=== PATIENT | female | born 1945 | race Caucasian/White ===

== ENCOUNTER 2022-06-20 14:30 | Inpatient (IN) | payer MEDICARE, OTHER ==
[2022-06-20 16:27] LABS: #Monocytes 0.1 10x3/uL (0.0-1.1); #Neutrophils 6.9 10x3/uL (1.5-8.4); %Basophils 0.3 % (0.0-2.0); %Eosinophils 0.1 % (0.0-6.0); %Lymphocytes 5.2 % (18.0-47.0); %Monocytes 1.7 % (0.0-10.0); %Neutrophils 91.1 % (40.0-75.0); Hemoglobin 9.4 g/dL (12.0-15.5); Mean Corpuscular HGB CONC 32.2 g/dL (32.0-36.0); Mean Corpuscular Hemoglobin 34.9 pg (27.0-33.0); Mean Corpuscular Volume 108.6 fl (81.6-98.3); Mean Platelet Volume 10.5 fl (7.4-10.4); Platelet Count 248 10x3/uL (150-450); RBC Distribution Width 16.1 % (11.5-14.5); Red Blood Cell (RBC) Count 2.69 10x6/uL (3.90-5.03); White Blood Cell (WBC) Count 7.6 10x3/uL (3.5-10.5)
[2022-06-20 16:36] LABS: ALT (SGPT) 20 U/L (8-55); AST (SGOT) 15 U/L (5-34); Albumin 2.9 g/dL (3.4-4.8); Alkaline Phosphatase 60 U/L (40-110); Anion Gap 16 mmol/L (10-20); BUN (Urea Nitrogen) 78 mg/dL (9.8-20.1); Bilirubin, Total 0.4 mg/dL (0.2-1.2); Calc. Creatinine Clearance 0 mL/min (70-130); Calcium 8.8 mg/dL (7.8-10.44); Carbon Dioxide 25 mmol/L (23-31); Chloride 100 mmol/L (98-107); Estimated GFR 17; Globulin 2.8 g/dL (2.4-3.5); Glucose 185 mg/dL (83-110); Potassium 4.7 mmol/L (3.5-5.1); Protein, Total 5.7 g/dL (5.8-8.1); Sodium 136 mmol/L (136-145)
[2022-06-20] MEDS ORDERED: Ondansetron ODT 4 MG TAB ONE (16:40)
[2022-06-20] MEDS ORDERED: HYDROcodone/Acetaminophen 5/325 mg Tablet ONE (16:41)
[2022-06-20 16:54] LABS: Platelet Morphology Comment Appears Adequate
[2022-06-20 16:57] LABS: Anisocytosis SLIGHT = 6-15 cells (100X) (0-5/hpf); Elliptocytes SLIGHT = 2-5 cells (100X) (0-1/hpf); Hypochromia SLIGHT = 6-15 cells (100X) (0-5/hpf); Macrocytosis SLIGHT = 6-15 cells (100X) (0-5/hpf); Microcytosis SLIGHT = 6-15 cells (100X) (0-5/hpf); Polychromasia SLIGHT = 2-3 cells (100X) (0-2/hpf)
[2022-06-20] MEDS ORDERED: Cefepime 2 GM VIAL ONE (18:01)
[2022-06-20] MEDS ORDERED: Acetaminophen 650 MG Suppository PR PRN (18:23)
[2022-06-20] MEDS ORDERED: Ondansetron PF 4 MG/2 ML Vial IVP PRN (18:23)
[2022-06-20] MEDS ORDERED: Vancomycin 1 GM in Premix Bag 1 BAG IVPB SCH (18:30)
[2022-06-20] MEDS ORDERED: Vancomycin 1 GM VIAL ONE (18:53)
[2022-06-20 18:57] LABS: Lactic Acid 1.2 mmol/L (0.5-2.2)
[2022-06-20 21:32] VITALS: BMI 22.8
[2022-06-20] MEDS: metroNIDAZOLE 500 MG in Premix Bag 1 BAG IVPB SCH (22:00)
[2022-06-21 00:31] LABS: SARS-CoV-2 NAA Rapid Test Not Detected (NotDetected)
[2022-06-21 04:25] LABS: Anion Gap 12 mmol/L (10-20); BUN (Urea Nitrogen) 71 mg/dL (9.8-20.1); Calc. Creatinine Clearance 17 mL/min (70-130); Calcium 8.2 mg/dL (7.8-10.44); Carbon Dioxide 25 mmol/L (23-31); Chloride 105 mmol/L (98-107); Estimated GFR 20; Glucose 94 mg/dL (83-110); Potassium 3.9 mmol/L (3.5-5.1); Sodium 138 mmol/L (136-145)
[2022-06-21 04:30] LABS: #Eosinphils 0.1 10x3/uL (0.0-0.5); #Monocytes 0.4 10x3/uL (0.0-1.1); #Neutrophils 5.4 10x3/uL (1.5-8.4); %Basophils 0.1 % (0.0-2.0); %Eosinophils 0.9 % (0.0-6.0); %Lymphocytes 13.1 % (18.0-47.0); %Neutrophils 78.9 % (40.0-75.0); Hemoglobin 8.6 g/dL (12.0-15.5); Mean Corpuscular HGB CONC 31.7 g/dL (32.0-36.0); Mean Corpuscular Hemoglobin 34.1 pg (27.0-33.0); Mean Corpuscular Volume 107.5 fl (81.6-98.3); Mean Platelet Volume 10.3 fl (7.4-10.4); Platelet Count 229 10x3/uL (150-450); RBC Distribution Width 16.1 % (11.5-14.5); Red Blood Cell (RBC) Count 2.52 10x6/uL (3.90-5.03); White Blood Cell (WBC) Count 6.9 10x3/uL (3.5-10.5)
[2022-06-21] MEDS: metroNIDAZOLE 500 MG in Premix Bag 1 BAG IVPB SCH ×4 (04:31→21:53)
[2022-06-21] MEDS ORDERED: Vancomycin DOSE BY LEVEL IVPB PRN (05:59)
[2022-06-21] MEDS ORDERED: Magnevist 469MG/ML 20 ML VIAL ONE (09:12)
[2022-06-21] MEDS: Acetaminophen 325 MG TAB PO PRN (10:23)
[2022-06-21] MEDS: HYDROcodone/Acetaminophen 7.5/325 mg Tablet PO PRN ×2 (16:17→21:49)
[2022-06-21] MEDS: Ondansetron ODT 4 MG TAB PO PRN ×2 (16:18→21:52)
[2022-06-21] MEDS: Cefepime 2 GM in Sodium Chloride 0.9% 100 ML IVPB SCH (17:58)
[2022-06-21 19:12] LABS: Vancomycin, Random 11.9 ug/mL (See Comment)
[2022-06-21] MEDS ORDERED: Vancomycin HCl 500 MG in Sodium Chloride 0.9% 100 ML IVPB SCH (20:00)
[2022-06-22] MEDS: HYDROcodone/Acetaminophen 7.5/325 mg Tablet PO PRN ×3 (02:14→15:32)
[2022-06-22] MEDS: metroNIDAZOLE 500 MG in Premix Bag 1 BAG IVPB SCH ×4 (03:56→21:14)
[2022-06-22 05:33] LABS: #Eosinphils 0.1 10x3/uL (0.0-0.5); #Monocytes 0.4 10x3/uL (0.0-1.1); #Neutrophils 4.4 10x3/uL (1.5-8.4); %Basophils 0.5 % (0.0-2.0); %Eosinophils 1.5 % (0.0-6.0); %Lymphocytes 16.4 % (18.0-47.0); %Neutrophils 74.2 % (40.0-75.0); Hemoglobin 8.5 g/dL (12.0-15.5); Mean Corpuscular Hemoglobin 33.9 pg (27.0-33.0); Mean Corpuscular Volume 109.2 fl (81.6-98.3); Mean Platelet Volume 10.1 fl (7.4-10.4); Platelet Count 204 10x3/uL (150-450); RBC Distribution Width 16.6 % (11.5-14.5); Red Blood Cell (RBC) Count 2.51 10x6/uL (3.90-5.03); White Blood Cell (WBC) Count 5.9 10x3/uL (3.5-10.5)
[2022-06-22 05:39] LABS: Anion Gap 11 mmol/L (10-20); BUN (Urea Nitrogen) 60 mg/dL (9.8-20.1); Calc. Creatinine Clearance 18 mL/min (70-130); Calcium 7.9 mg/dL (7.8-10.44); Carbon Dioxide 25 mmol/L (23-31); Chloride 108 mmol/L (98-107); Estimated GFR 21; Glucose 84 mg/dL (83-110); Sodium 140 mmol/L (136-145)
[2022-06-22] MEDS: Ondansetron ODT 4 MG TAB PO PRN ×2 (09:45→15:32)
[2022-06-22] MEDS: Cefepime 2 GM in Sodium Chloride 0.9% 100 ML IVPB SCH (17:17)
[2022-06-22] MEDS: Acetaminophen 325 MG TAB PO PRN (18:16)
[2022-06-22 20:43] LABS: Vancomycin, Random 13.3 ug/mL (See Comment)
[2022-06-22] MEDS ORDERED: Non-Formulary Medication 1 EACH (Apremilast [Otezla] 30 MG Tablet) PO SCH (21:00)
[2022-06-22] MEDS: Cyclobenzaprine 10 MG TAB PO SCH (21:13)
[2022-06-22] MEDS: Gabapentin 300 MG CAP PO SCH (21:13)
[2022-06-22] MEDS ORDERED: Vancomycin HCl 500 MG in Sodium Chloride 0.9% 100 ML IVPB SCH (23:59)
[2022-06-23 04:30] LABS: #Eosinphils 0.1 10x3/uL (0.0-0.5); #Monocytes 0.4 10x3/uL (0.0-1.1); #Neutrophils 4.9 10x3/uL (1.5-8.4); %Basophils 0.5 % (0.0-2.0); %Eosinophils 2.1 % (0.0-6.0); %Lymphocytes 13.6 % (18.0-47.0); %Monocytes 5.9 % (0.0-10.0); %Neutrophils 76.9 % (40.0-75.0); Hemoglobin 8.5 g/dL (12.0-15.5); Mean Corpuscular HGB CONC 30.9 g/dL (32.0-36.0); Mean Corpuscular Hemoglobin 34.3 pg (27.0-33.0); Mean Corpuscular Volume 110.9 fl (81.6-98.3); Mean Platelet Volume 10.2 fl (7.4-10.4); Platelet Count 201 10x3/uL (150-450); RBC Distribution Width 16.2 % (11.5-14.5); Red Blood Cell (RBC) Count 2.48 10x6/uL (3.90-5.03); White Blood Cell (WBC) Count 6.3 10x3/uL (3.5-10.5)
[2022-06-23 04:36] LABS: Anion Gap 12 mmol/L (10-20); BUN (Urea Nitrogen) 42 mg/dL (9.8-20.1); Calc. Creatinine Clearance 22 mL/min (70-130); Carbon Dioxide 23 mmol/L (23-31); Chloride 111 mmol/L (98-107); Estimated GFR 28; Glucose 84 mg/dL (83-110); Potassium 4.1 mmol/L (3.5-5.1); Sodium 142 mmol/L (136-145)
[2022-06-23] MEDS: metroNIDAZOLE 500 MG in Premix Bag 1 BAG IVPB SCH ×4 (05:41→21:56)
[2022-06-23] MEDS: Rivaroxaban 15 MG TAB PO SCH (08:44)
[2022-06-23] MEDS: Cholecalciferol 1,000 UNITS (25 MCG) TAB PO SCH (08:45)
[2022-06-23] MEDS: Amiodarone 200 MG TAB PO SCH (08:45)
[2022-06-23] MEDS: Calcitriol 0.25 MCG CAP PO SCH (08:45)
[2022-06-23] MEDS: Folic Acid 1 MG TAB PO SCH (08:45)
[2022-06-23] MEDS: Ascorbic Acid 500 mg Chewable Tablet PO SCH (08:45)
[2022-06-23] MEDS: Metoprolol Tartrate 25 MG TAB PO SCH (08:45)
[2022-06-23] MEDS: Zinc Sulfate 220 MG CAP PO SCH (08:45)
[2022-06-23] MEDS: Multivit, Therapeutic 1 TAB PO SCH (08:45)
[2022-06-23] MEDS: Furosemide 40 MG TAB PO SCH (08:45)
[2022-06-23] MEDS: Allopurinol 100 MG TAB PO SCH (08:45)
[2022-06-23] MEDS: Cyanocobalamin (Vitamin B-12) 1,000 MCG TAB PO SCH (08:45)
[2022-06-23] MEDS ORDERED: Non-Formulary Medication 1 EACH (Biotin [Biotin] 10,000 MCG Capsule) PO SCH (09:00)
[2022-06-23] MEDS ORDERED: Levothyroxine Sodium 75 MCG TAB PO SCH (09:00)
[2022-06-23] MEDS: Cefepime 2 GM in Sodium Chloride 0.9% 100 ML IVPB SCH (17:46)
[2022-06-23] MEDS: Gabapentin 300 MG CAP PO SCH (20:34)
[2022-06-23] MEDS: Cyclobenzaprine 10 MG TAB PO SCH (20:34)
[2022-06-24 05:20] LABS: Anion Gap 11 mmol/L (10-20); BUN (Urea Nitrogen) 35 mg/dL (9.8-20.1); Calc. Creatinine Clearance 24 mL/min (70-130); Calcium 8.1 mg/dL (7.8-10.44); Carbon Dioxide 26 mmol/L (23-31); Chloride 108 mmol/L (98-107); Estimated GFR 30; Glucose 86 mg/dL (83-110); Potassium 3.5 mmol/L (3.5-5.1); Sodium 141 mmol/L (136-145)
[2022-06-24] MEDS ORDERED: Vancomycin HCl 500 MG in Sodium Chloride 0.9% 100 ML IVPB SCH (06:30)
[2022-06-24] MEDS: metroNIDAZOLE 500 MG in Premix Bag 1 BAG IVPB SCH ×4 (07:16→23:13)
[2022-06-24] MEDS: Rivaroxaban 15 MG TAB PO SCH (09:04)
[2022-06-24] MEDS: Ascorbic Acid 500 mg Chewable Tablet PO SCH (09:04)
[2022-06-24] MEDS: Cholecalciferol 1,000 UNITS (25 MCG) TAB PO SCH (09:04)
[2022-06-24] MEDS: Multivit, Therapeutic 1 TAB PO SCH (09:04)
[2022-06-24] MEDS: Amiodarone 200 MG TAB PO SCH (09:04)
[2022-06-24] MEDS: Calcitriol 0.25 MCG CAP PO SCH (09:05)
[2022-06-24] MEDS: Cyanocobalamin (Vitamin B-12) 1,000 MCG TAB PO SCH (09:05)
[2022-06-24] MEDS: Folic Acid 1 MG TAB PO SCH (09:05)
[2022-06-24] MEDS: Furosemide 40 MG TAB PO SCH (09:05)
[2022-06-24] MEDS: Metoprolol Tartrate 25 MG TAB PO SCH (09:05)
[2022-06-24] MEDS: Zinc Sulfate 220 MG CAP PO SCH (09:15)
[2022-06-24] MEDS: Allopurinol 100 MG TAB PO SCH (09:15)
[2022-06-24] MEDS: Cefepime 2 GM in Sodium Chloride 0.9% 100 ML IVPB SCH (18:00)
[2022-06-24] MEDS: Gabapentin 300 MG CAP PO SCH (20:30)
[2022-06-24] MEDS: Cyclobenzaprine 10 MG TAB PO SCH (20:30)
[2022-06-25] MEDS: metroNIDAZOLE 500 MG in Premix Bag 1 BAG IVPB SCH ×2 (04:15→11:53)
[2022-06-25 05:04] LABS: Anion Gap 14 mmol/L (10-20); BUN (Urea Nitrogen) 32 mg/dL (9.8-20.1); Calc. Creatinine Clearance 22 mL/min (70-130); Calcium 8.1 mg/dL (7.8-10.44); Carbon Dioxide 23 mmol/L (23-31); Chloride 107 mmol/L (98-107); Estimated GFR 28; Glucose 86 mg/dL (83-110); Potassium 3.5 mmol/L (3.5-5.1); Sodium 140 mmol/L (136-145)
[2022-06-25 05:55] LABS: Vancomycin, Random 17.6 ug/mL (See Comment)
[2022-06-25] MEDS: Cholecalciferol 1,000 UNITS (25 MCG) TAB PO SCH (08:31)
[2022-06-25] MEDS: Zinc Sulfate 220 MG CAP PO SCH (08:31)
[2022-06-25] MEDS: Metoprolol Tartrate 25 MG TAB PO SCH (08:32)
[2022-06-25] MEDS: Multivit, Therapeutic 1 TAB PO SCH (08:32)
[2022-06-25] MEDS: Amiodarone 200 MG TAB PO SCH (08:32)
[2022-06-25] MEDS: Calcitriol 0.25 MCG CAP PO SCH (08:32)
[2022-06-25] MEDS: Ascorbic Acid 500 mg Chewable Tablet PO SCH (08:32)
[2022-06-25] MEDS: Cyanocobalamin (Vitamin B-12) 1,000 MCG TAB PO SCH (08:32)
[2022-06-25] MEDS: Rivaroxaban 15 MG TAB PO SCH (08:32)
[2022-06-25] MEDS: Folic Acid 1 MG TAB PO SCH (08:32)
[2022-06-25] MEDS: Furosemide 40 MG TAB PO SCH (08:32)
[2022-06-25] MEDS: Allopurinol 100 MG TAB PO SCH (08:32)
[2022-06-25] MEDS: Cefepime 2 GM in Sodium Chloride 0.9% 100 ML IVPB SCH (18:39)
[2022-06-25] MEDS: Cyclobenzaprine 10 MG TAB PO SCH (21:20)
[2022-06-25] MEDS: Gabapentin 300 MG CAP PO SCH (21:20)
[2022-06-26 07:01] LABS: Vancomycin, Random 13.6 ug/mL (See Comment)
[2022-06-26] MEDS ORDERED: Vancomycin HCl 500 MG in Sodium Chloride 0.9% 100 ML IVPB SCH (08:00)
[2022-06-26] MEDS: Metoprolol Tartrate 25 MG TAB PO SCH (10:00)
[2022-06-26] MEDS: Amiodarone 200 MG TAB PO SCH (10:01)
[2022-06-26] MEDS: Zinc Sulfate 220 MG CAP PO SCH (10:01)
[2022-06-26] MEDS: Cholecalciferol 1,000 UNITS (25 MCG) TAB PO SCH (10:01)
[2022-06-26] MEDS: Rivaroxaban 15 MG TAB PO SCH (10:02)
[2022-06-26] MEDS: Multivit, Therapeutic 1 TAB PO SCH (10:02)
[2022-06-26] MEDS: Folic Acid 1 MG TAB PO SCH (10:03)
[2022-06-26] MEDS: Furosemide 40 MG TAB PO SCH (10:03)
[2022-06-26] MEDS: Calcitriol 0.25 MCG CAP PO SCH (10:03)
[2022-06-26] MEDS: Allopurinol 100 MG TAB PO SCH (10:03)
[2022-06-26] MEDS: Cyanocobalamin (Vitamin B-12) 1,000 MCG TAB PO SCH (10:03)
[2022-06-26] MEDS: Ascorbic Acid 500 mg Chewable Tablet PO SCH (10:03)
[2022-06-26 13:20] VITALS: BP 98/53; TEMP 98
== END 2022-06-26 14:20 | disposition home health service (06) | DRG 603 ==
LOC: CSHERS 14:30 → CSHTELE 21:10 → INTOOBSV 21:10 → OBSVTOIN 06-21 10:53
PROVIDERS: ADMIT Family Medicine; ATTEND Internal Medicine
DX: L03.116 Cellulitis of left lower limb (principal); N18.4 Chronic kidney disease, stage 4 (severe); I48.11 Longstanding persistent atrial fibrillation; N17.9 Acute kidney failure, unspecified; Z20.822 Contact with and (suspected) exposure to COVID-19; Z79.01 Long term (current) use of anticoagulants; Z98.84 Bariatric surgery status; Z90.49 Acquired absence of other specified parts of digestive tract; Z90.710 Acquired absence of both cervix and uterus; M60.9 Myositis, unspecified; E03.9 Hypothyroidism, unspecified; Z79.890 Hormone replacement therapy; I12.9 Hypertensive chronic kidney disease with stage 1 through stage 4 chronic kidney disease, or unspecified chronic kidney disease; Z88.1 Allergy status to other antibiotic agents; Z88.6 Allergy status to analgesic agent
CPT/HCPCS: 36415; 80048; 80053; 80202; 83605; 85025; 87040; 94760; 96365; 96375; 96376; 97139; A9579; G0378; J0692; J2405; J3370; J3490; Q0162; U0002

== ENCOUNTER 2022-06-30 09:57 | Outpatient (CLI) | payer MEDICARE, OTHER | END 2022-06-30 09:58 | disposition home or self-care (01) | LOC: CSHWCC 09:57 | PROVIDERS: ATTEND Nurse Practitioner Family | DX: R60.0 Localized edema (principal) | CPT/HCPCS: 29581; 97139; G0463; 99204 ==

== ENCOUNTER 2022-07-14 10:54 | Outpatient (CLI) | payer MEDICARE, OTHER | END 2022-07-14 10:55 | disposition home or self-care (01) | LOC: CSHWCC 10:54 | PROVIDERS: ATTEND Nurse Practitioner Family | DX: R60.1 Generalized edema (principal); S81.802D Unspecified open wound, left lower leg, subsequent encounter | CPT/HCPCS: 29581; 97139; 97607; G0463; 99212 ==

== ENCOUNTER 2022-07-21 08:04 | Outpatient (CLI) | payer MEDICARE, OTHER | END 2022-07-21 08:05 | disposition home or self-care (01) | LOC: CSHWCC 08:04 | PROVIDERS: ATTEND Nurse Practitioner Family | DX: S81.802D Unspecified open wound, left lower leg, subsequent encounter (principal); R60.0 Localized edema ==

== ENCOUNTER 2022-07-28 10:40 | Outpatient (CLI) | payer MEDICARE, OTHER | END 2022-07-28 10:41 | disposition home or self-care (01) | LOC: CSHWCC 10:40 | PROVIDERS: ATTEND Nurse Practitioner Family | DX: S81.802D Unspecified open wound, left lower leg, subsequent encounter (principal); R60.0 Localized edema | CPT/HCPCS: 29581 ==

== ENCOUNTER 2022-08-11 10:35 | Outpatient (CLI) | payer MEDICARE, OTHER | END 2022-08-11 10:36 | disposition home or self-care (01) | LOC: CSHWCC 10:35 | PROVIDERS: ATTEND Nurse Practitioner Family | DX: S81.802D Unspecified open wound, left lower leg, subsequent encounter (principal); R60.0 Localized edema | CPT/HCPCS: 99213; G0463 ==

== ENCOUNTER 2022-12-19 15:09 | Outpatient (CLI) | payer MEDICARE, OTHER | END 2022-12-19 15:10 | disposition home or self-care (01) | LOC: CSHWCC 15:09 | PROVIDERS: ATTEND Nurse Practitioner Family | DX: L89.620 Pressure ulcer of left heel, unstageable (principal); S91.102D Unspecified open wound of left great toe without damage to nail, subsequent encounter; R60.0 Localized edema | CPT/HCPCS: 97139; G0463; 99213 ==

== ENCOUNTER 2022-12-26 09:22 | Outpatient (CLI) | payer MEDICARE, OTHER | END 2022-12-26 09:23 | disposition home or self-care (01) | LOC: CSHWCC 09:22 | PROVIDERS: ATTEND Nurse Practitioner Family | DX: R60.0 Localized edema (principal); L89.620 Pressure ulcer of left heel, unstageable | CPT/HCPCS: 97597 ==

== ENCOUNTER 2023-01-09 13:06 | Outpatient (CLI) | payer MEDICARE, OTHER | END 2023-01-09 13:07 | disposition home or self-care (01) | LOC: CSHWCC 13:06 | PROVIDERS: ATTEND Nurse Practitioner Family | DX: L89.620 Pressure ulcer of left heel, unstageable (principal); R60.0 Localized edema | CPT/HCPCS: 97139; 97605; G0463; 99213 ==

== ENCOUNTER 2023-01-23 11:07 | Outpatient (CLI) | payer MEDICARE, OTHER | END 2023-01-23 11:08 | disposition home or self-care (01) | LOC: CSHWCC 11:07 | PROVIDERS: ATTEND Nurse Practitioner Family | DX: R60.0 Localized edema (principal); L89.620 Pressure ulcer of left heel, unstageable | CPT/HCPCS: 97597; 97607 ==

== ENCOUNTER 2023-02-01 13:33 | Outpatient (CLI) | payer MEDICARE, OTHER | END 2023-02-01 13:34 | disposition home or self-care (01) | LOC: CSHWCC 13:33 | PROVIDERS: ATTEND Nurse Practitioner Family | DX: L89.620 Pressure ulcer of left heel, unstageable (principal); R60.0 Localized edema | CPT/HCPCS: 11042 ==

== ENCOUNTER 2024-05-30 09:28 | Inpatient (IN) | payer MEDICARE, OTHER ==
[2024-05-30] MEDS ORDERED: Ondansetron PF 4 MG/2 ML Vial ONE (09:48)
[2024-05-30 10:30] LABS: #Basophils 0.03 10x3/uL (0.0-0.2); #Eosinophils 0.04 10x3/uL (0.0-0.5); #Monocytes 0.46 10x3/uL (0.0-1.1); #Neutrophils 8.23 10x3/uL (1.5-8.4); %Basophils 0.3 % (0.0-2.0); %Eosinophils 0.4 % (0.0-6.0); %Lymphocytes 3.7 % (18.0-47.0); %Neutrophils 90.1 % (40.0-75.0); Hematocrit 33.7 % (34.9-44.5); Hemoglobin 9.9 g/dL (12.0-15.5); Mean Corpuscular HGB CONC 29.4 g/dL (32.0-36.0); Mean Corpuscular Hemoglobin 30.2 pg (27.0-33.0); Mean Corpuscular Volume 102.7 fL (81.6-98.3); Mean Platelet Volume 10.9 fL (7.4-10.4); Platelet Count 146 10x3/uL (150-450); RBC Distribution Width 16.1 % (11.5-14.5); Red Blood Cell (RBC) Count 3.28 10x6/uL (3.90-5.03); White Blood Cell (WBC) Count 9.2 10x3/uL (3.5-10.5)
[2024-05-30 10:42] LABS: ALT (SGPT) 16 U/L (8-55); AST (SGOT) 13 U/L (5-34); Alkaline Phosphatase 80 U/L (40-110); Anion Gap 18 mmol/L (10-20); BUN (Urea Nitrogen) 74 mg/dL (9.8-20.1); Bilirubin, Total 0.3 mg/dL (0.2-1.2); Calc. Creatinine Clearance 0 mL/min (70-130); Calcium 8.5 mg/dL (7.8-10.44); Carbon Dioxide 12 mmol/L (23-31); Chloride 116 mmol/L (98-107); Estimated GFR 12; Globulin 3.2 g/dL (2.4-3.5); Glucose 69 mg/dL (83-110); Lipase 12 U/L (8-78); Protein, Total 6.2 g/dL (5.8-8.1); Sodium 140 mmol/L (136-145)
[2024-05-30 10:48] LABS: Troponin I 0.016 ng/mL (< 0.028)
[2024-05-30 11:04] LABS: Critical Call Chemistry NUR.JF4 @1103; Potassium 6.2 mmol/L (3.5-5.1)
[2024-05-30] MEDS ORDERED: Calcium Chloride 1 GM/10 ML Abboject SYRINGE ONE (11:12)
[2024-05-30] MEDS ORDERED: Dextrose 50% Abboject 50 ML SYRINGE ONE (11:13)
[2024-05-30] MEDS ORDERED: Sodium Bicarb 50 MEQ/50 ML Abboject 8.4% SYRINGE ONE (11:13)
[2024-05-30 12:50] LABS: Bilirubin Neg (Negative); Blood, Urine Negative (Negative); Clarity Cloudy (Clear); Glucose, Urine (Dipstick) Normal (Negative); Ketone, Urine 5 mg/dL (Negative); Leukocyte Negative (Negative); Nitrite Negative (Negative); Protein, Urine (Dipstick) 30 mg/dl (Neg-Trace); Specific Gravity, Urine 1.015 (1.005-1.030); Urobilinogen Normal mg/dL (Less than 2)
[2024-05-30 12:58] LABS: Bacteria/HPF Rare-Few HPF (None Seen); CAUTI Indications for Culture Pelvic or flank pain; RBC/HPF None Seen HPF (0-3); Squamous Epithelial 0-3 HPF (0-3); WBC/HPF 0-3 HPF (0-3)
[2024-05-30 13:00] LABS: Urine Culture Reflex No No
[2024-05-30] MEDS: Sodium Bicarbonate 150 MEQ in Dextrose 5% in Water 1,000 ML IV SCH (13:29)
[2024-05-30] MEDS ORDERED: Acetaminophen 325 MG TAB PO PRN (14:18)
[2024-05-30] MEDS ORDERED: Calcium Carbonate 500 MG ChewTAB PO PRN (14:18)
[2024-05-30] MEDS ORDERED: Ondansetron PF 4 MG/2 ML Vial IVP PRN (15:27)
[2024-05-30 16:06] LABS: Anion Gap 14 mmol/L (10-20); BUN (Urea Nitrogen) 65 mg/dL (9.8-20.1); Calc. Creatinine Clearance 0 mL/min (70-130); Calcium 8.5 mg/dL (7.8-10.44); Carbon Dioxide 15 mmol/L (23-31); Chloride 120 mmol/L (98-107); Estimated GFR 14; Glucose 112 mg/dL (83-110); Potassium 5.8 mmol/L (3.5-5.1); Sodium 143 mmol/L (136-145)
[2024-05-30 17:47] VITALS: BMI 22.2
[2024-05-30] MEDS: Cyanocobalamin (Vitamin B-12) 1,000 MCG TAB PO SCH (21:25)
[2024-05-30] MEDS: Folic Acid 1 MG TAB PO SCH (21:25)
[2024-05-30] MEDS: Pantoprazole 40 MG VIAL IVP SCH (21:25)
[2024-05-30] MEDS: Thiamine 100 MG TAB PO SCH (21:25)
[2024-05-31 04:20] LABS: #Basophils 0.03 10x3/uL (0.0-0.2); #Eosinophils 0.27 10x3/uL (0.0-0.5); #Neutrophils 4.28 10x3/uL (1.5-8.4); %Basophils 0.5 % (0.0-2.0); %Eosinophils 4.5 % (0.0-6.0); %Lymphocytes 13.6 % (18.0-47.0); %Neutrophils 70.9 % (40.0-75.0); Hematocrit 29.2 % (34.9-44.5); Hemoglobin 8.9 g/dL (12.0-15.5); Mean Corpuscular HGB CONC 30.5 g/dL (32.0-36.0); Mean Corpuscular Hemoglobin 30.5 pg (27.0-33.0); Mean Platelet Volume 11.7 fL (7.4-10.4); Platelet Count 137 10x3/uL (150-450); RBC Distribution Width 16.2 % (11.5-14.5); Red Blood Cell (RBC) Count 2.92 10x6/uL (3.90-5.03)
[2024-05-31 04:36] LABS: ALT (SGPT) 13 U/L (8-55); AST (SGOT) 10 U/L (5-34); Albumin 2.4 g/dL (3.4-4.8); Alkaline Phosphatase 63 U/L (40-110); Anion Gap 14 mmol/L (10-20); BUN (Urea Nitrogen) 59 mg/dL (9.8-20.1); Bilirubin, Total 0.4 mg/dL (0.2-1.2); Calc. Creatinine Clearance 14 mL/min (70-130); Calcium 8.4 mg/dL (7.8-10.44); Carbon Dioxide 19 mmol/L (23-31); Chloride 114 mmol/L (98-107); Estimated GFR 16; Globulin 2.8 g/dL (2.4-3.5); Glucose 98 mg/dL (83-110); Potassium 5.2 mmol/L (3.5-5.1); Protein, Total 5.2 g/dL (5.8-8.1); Sodium 142 mmol/L (136-145)
[2024-05-31] MEDS: Levothyroxine Sodium 75 MCG TAB PO SCH (06:05)
[2024-05-31] MEDS: Calcitriol 0.25 MCG CAP PO SCH (09:53)
[2024-05-31] MEDS: Ondansetron ODT 4 MG TAB PO PRN (09:53)
[2024-05-31] MEDS: Sodium Bicarbonate Tab 325 MG TAB PO SCH (15:53)
[2024-05-31 23:48] VITALS: BMI 22.2
[2024-06-01 08:49] LABS: #Basophils 0.05 10x3/uL (0.0-0.2); #Eosinophils 0.36 10x3/uL (0.0-0.5); #Monocytes 0.77 10x3/uL (0.0-1.1); %Basophils 0.8 % (0.0-2.0); %Eosinophils 5.6 % (0.0-6.0); %Lymphocytes 20.6 % (18.0-47.0); %Monocytes 11.9 % (0.0-10.0); %Neutrophils 60.5 % (40.0-75.0); Hematocrit 33.1 % (34.9-44.5); Hemoglobin 9.9 g/dL (12.0-15.5); Mean Corpuscular HGB CONC 29.9 g/dL (32.0-36.0); Mean Corpuscular Hemoglobin 30.4 pg (27.0-33.0); Mean Corpuscular Volume 101.5 fL (81.6-98.3); Mean Platelet Volume 11.3 fL (7.4-10.4); Platelet Count 161 10x3/uL (150-450); RBC Distribution Width 16.1 % (11.5-14.5); Red Blood Cell (RBC) Count 3.26 10x6/uL (3.90-5.03); White Blood Cell (WBC) Count 6.5 10x3/uL (3.5-10.5)
[2024-06-01] MEDS ORDERED: Heparin 5,000 UNITS/ML VIAL SC SCH (09:00)
[2024-06-01 09:02] LABS: Anion Gap 15 mmol/L (10-20); BUN (Urea Nitrogen) 50 mg/dL (9.8-20.1); Calc. Creatinine Clearance 15 mL/min (70-130); Calcium 8.2 mg/dL (7.8-10.44); Carbon Dioxide 21 mmol/L (23-31); Chloride 111 mmol/L (98-107); Estimated GFR 17; Glucose 73 mg/dL (83-110); Potassium 5.2 mmol/L (3.5-5.1); Sodium 142 mmol/L (136-145)
[2024-06-01] MEDS: Pantoprazole 40 MG DR.TAB PO SCH (10:32)
[2024-06-01] MEDS ORDERED: Polyethylene Glycol 3350 17 GM Packet PO PRN (12:05)
[2024-06-01] MEDS: Heparin 5,000 UNITS/ML VIAL SC SCH (21:20)
[2024-06-01] MEDS: Docusate 100 MG CAP PO SCH (21:20)
[2024-06-02 04:20] LABS: #Basophils 0.05 10x3/uL (0.0-0.2); #Monocytes 0.79 10x3/uL (0.0-1.1); #Neutrophils 4.09 10x3/uL (1.5-8.4); %Basophils 0.8 % (0.0-2.0); %Eosinophils 4.5 % (0.0-6.0); %Lymphocytes 20.7 % (18.0-47.0); %Monocytes 11.9 % (0.0-10.0); %Neutrophils 61.8 % (40.0-75.0); Hematocrit 31.7 % (34.9-44.5); Hemoglobin 9.4 g/dL (12.0-15.5); Mean Corpuscular HGB CONC 29.7 g/dL (32.0-36.0); Mean Corpuscular Hemoglobin 30.2 pg (27.0-33.0); Mean Corpuscular Volume 101.9 fL (81.6-98.3); Mean Platelet Volume 11.4 fL (7.4-10.4); Platelet Count 157 10x3/uL (150-450); Red Blood Cell (RBC) Count 3.11 10x6/uL (3.90-5.03); White Blood Cell (WBC) Count 6.6 10x3/uL (3.5-10.5)
[2024-06-02 04:30] LABS: Anion Gap 13 mmol/L (10-20); BUN (Urea Nitrogen) 48 mg/dL (9.8-20.1); Calc. Creatinine Clearance 15 mL/min (70-130); Calcium 8.2 mg/dL (7.8-10.44); Carbon Dioxide 22 mmol/L (23-31); Chloride 111 mmol/L (98-107); Estimated GFR 17; Glucose 76 mg/dL (83-110); Sodium 141 mmol/L (136-145)
[2024-06-02 12:35] VITALS: TEMP 97.7
[2024-06-02 14:47] VITALS: BP 117/61
== END 2024-06-02 15:50 | disposition home or self-care (01) | DRG 683 ==
LOC: CSHERS 09:28 → CSHERHOLD 11:57 → CSHTELE 16:05 → OBSVTOIN 05-31 11:52
PROVIDERS: ADMIT Internal Medicine; ATTEND Hospitalist
DX: N17.9 Acute kidney failure, unspecified (principal); E87.20 Acidosis, unspecified; K52.9 Noninfective gastroenteritis and colitis, unspecified; N18.4 Chronic kidney disease, stage 4 (severe); E87.5 Hyperkalemia; E16.2 Hypoglycemia, unspecified; E03.9 Hypothyroidism, unspecified; I48.0 Paroxysmal atrial fibrillation; D69.6 Thrombocytopenia, unspecified; D64.9 Anemia, unspecified; E86.9 Volume depletion, unspecified; E86.0 Dehydration; Z88.5 Allergy status to narcotic agent; Z88.1 Allergy status to other antibiotic agents; Z91.040 Latex allergy status; Z90.49 Acquired absence of other specified parts of digestive tract; Z98.84 Bariatric surgery status
CPT/HCPCS: 36415; 36416; 51701; 71045; 80048; 80053; 81001; 83605; 83690; 83735; 84484; 85025; 93005; 93010; 94760; 96361; 96374; 96375; 96376; 97139; G0378; J1644; J2405; J2470; J7070; J7999; Q0162

== ENCOUNTER 2024-06-09 12:35 | Emergency (ER) | payer MEDICARE, OTHER ==
[2024-06-09 13:40] LABS: #Basophils 0.06 10x3/uL (0.0-0.2); #Eosinophils 0.23 10x3/uL (0.0-0.5); #Neutrophils 4.69 10x3/uL (1.5-8.4); %Eosinophils 3.7 % (0.0-6.0); %Lymphocytes 10.6 % (18.0-47.0); %Monocytes 8.1 % (0.0-10.0); %Neutrophils 76.4 % (40.0-75.0); Hemoglobin 9.3 g/dL (12.0-15.5); Mean Corpuscular Hemoglobin 30.9 pg (27.0-33.0); Mean Platelet Volume 11.1 fL (7.4-10.4); Platelet Count 186 10x3/uL (150-450); RBC Distribution Width 15.9 % (11.5-14.5); Red Blood Cell (RBC) Count 3.01 10x6/uL (3.90-5.03); White Blood Cell (WBC) Count 6.14 10x3/uL (3.5-10.5)
[2024-06-09 13:42] LABS: Bilirubin Neg (Negative); Blood, Urine 25 (Negative); Glucose, Urine (Dipstick) Normal (Negative); Ketone, Urine Negative (Negative); Leukocyte 500 (Negative); Nitrite Positive (Negative); Protein, Urine (Dipstick) 30 mg/dl (Neg-Trace); Urobilinogen Normal mg/dL (Less than 2); pH, Urine 6.5 (5.0-9.0)
[2024-06-09 13:50] LABS: Clarity Slightly Cloudy (Clear)
[2024-06-09 13:53] LABS: PTT 27.6 sec (22.0-33.0); Prothrombin Time 10.5 sec (9.5-12.1)
[2024-06-09 13:55] LABS: ALT (SGPT) 11 U/L (8-55); AST (SGOT) 15 U/L (5-34); Albumin 2.6 g/dL (3.4-4.8); Alkaline Phosphatase 76 U/L (40-110); Anion Gap 14 mmol/L (10-20); BUN (Urea Nitrogen) 45 mg/dL (9.8-20.1); Bilirubin, Total 0.4 mg/dL (0.2-1.2); Calc. Creatinine Clearance 0 mL/min (70-130); Calcium 8.7 mg/dL (7.8-10.44); Carbon Dioxide 21 mmol/L (23-31); Chloride 106 mmol/L (98-107); Estimated GFR 17; Globulin 3.2 g/dL (2.4-3.5); Glucose 83 mg/dL (83-110); Potassium 5.5 mmol/L (3.5-5.1); Protein, Total 5.8 g/dL (5.8-8.1); Sodium 135 mmol/L (136-145)
[2024-06-09 13:59] LABS: CAUTI Indications for Culture Pelvic or flank pain; RBC/HPF 0-3 HPF (0-3); WBC/HPF Greater than 50 HPF (0-3)
[2024-06-09 14:00] LABS: Bacteria/HPF 4+ HPF (None Seen); Renal Epithelial 0-3 HPF (None Seen); Transitional Epithelial 0-3 HPF (None Seen)
[2024-06-09 14:01] LABS: Urine Culture Reflex Yes Yes
[2024-06-09] MEDS ORDERED: cefTRIAXone (ROCEPHIN) 2 GM VIAL ONE (14:32)
== END 2024-06-09 16:20 | disposition home or self-care (01) ==
LOC: CSHERS 12:35
DX: S70.11XA Contusion of right thigh, initial encounter (principal); N39.0 Urinary tract infection, site not specified; I12.9 Hypertensive chronic kidney disease with stage 1 through stage 4 chronic kidney disease, or unspecified chronic kidney disease; N18.4 Chronic kidney disease, stage 4 (severe); Z55.0 Illiteracy and low-level literacy; X58.XXXA Exposure to other specified factors, initial encounter
CPT/HCPCS: 73552; 80053; 81001; 85025; 85610; 85730; 87077; 87086; 87186; 93971; 96365; 99284; J0696; 36415